=== PATIENT | female | born 1960 | race Caucasian/White ===

== ENCOUNTER 2018-02-07 18:35 | Emergency (ER) | payer SELFPAY ==
--- NOTE | 2018-02-07 18:57 | RADIOLOGY REPORT (SQ) ---
EXAM DESCRIPTION: ANKLE LEFT AP/LATERAL COMPLETED DATE/TIME: 02/07/2018 6:48 pm REASON FOR STUDY: bed 2 +deformity COMPARISON: None. NUMBER OF VIEWS: Three views. TECHNIQUE: AP, lateral, and oblique radiographic images acquired of the left ankle. LIMITATIONS: None. FINDINGS: MINERALIZATION: Normal. BONES: Oblique fracture of the distal fibula. Dislocation of the tibiotalar joint. Prominent calcan eal spur. JOINTS: No effusions. SOFT TISSUES: No soft tissue swelling. No foreign body. OTHER: No other significant finding. IMPRESSION: Fibular fracture with dislocation of the tibiotalar joint. Calcaneal spur. TECHNICAL DOCUMENTATION: JOB ID: [id number] [employer]- All Rights Reserved Reading location - IP/workstation name: [email or web address]
[2018-02-07] MEDS ORDERED: HYDROMORPHONE HCL INJ/PF 2 MG/ML AMPULE IV ONE (18:58)
[2018-02-07] MEDS ORDERED: NORMAL SALINE 1000 ML 1,000 ML IV ONE (19:33)
[2018-02-07] MEDS ORDERED: LIDOCAINE 1%/EPINEPHRINE INJ 20 ML VIAL INJ ONE (19:35)
--- NOTE | 2018-02-07 20:34 | ER Document Report ---
ED Fall - General Chief Complaint: Fall Injury Stated Complaint: FALL Time Seen by Provider: 02/07/18 18:58 Mode of Arrival: Medic - HPI Patient complains to provider of: Leg pain Occurred: Other - This 57-year-old female presents for evaluation of pain in the left lower extremity after having fallen on her front steps with pain immediately thereafter. Denies any injury elsewhere pain shortness of breath fevers chills or other recent symptoms, she is otherwise generally healthy is treated for hypertension. Past Medical History - General Information source: Patient - Social History Smoking Status: Never Smoker Family History: None Patient has suicidal ideation: No Patient has homicidal ideation: No - Past Medical History Cardiac Medical History: Reports: Hx Hypertension Renal/ Medical History: Denies: Hx Peritoneal Dialysis Past Surgical History: Reports: Hx Abdominal Surgery - Hernia repair, Hx Section, Hx Gynecologic Surgery - Ablation Review of Systems - Review of Systems -: Yes All other systems reviewed and negative Physical Exam - Vital signs Vitals: Temp Pulse Resp BP Pulse Ox 98.5 F 87 16 166/90 H 96 02/07/18 18:42 02/07/18 18:42 02/07/18 18:42 02/07/18 18:42 02/07/18 18:42 - General General appearance: Appears well In distress: None - HEENT Head: Normocephalic Eyes: Normal Conjunctiva: Normal Cornea: Normal Extraocular movements intact: Yes - Respiratory Respiratory status: No respiratory distress Chest status: Nontender Breath sounds: Normal Chest palpation: Normal - Cardiovascular Rhythm: Regular Heart sounds: Normal auscultation Murmur: No - Abdominal Inspection: Normal Distension: No distension Tenderness: Nontender - Back Back: Normal - Extremities General upper extremity: Normal inspection, Nontender, Normal ROM, Normal strength General lower extremity: Other - The left lower extremity demonstrates an obvious malalignment, there is normal range of motion in the hips, knees, the left ankle is anteriorly displaced, there is intact sensation in the distal aspect of the webspace between the first and second digit, there is a strong DP pulse and brisk capillary refill in all 5 toes Intact PT pulse - Neurological Neuro grossly intact: Yes Cognition: Normal Orientation: AAOx4 Tima Coma Scale Eye Opening: Spontaneous Tima Coma Scale Verbal: Oriented [place] Coma Scale Motor: Obeys Commands [place] Coma Scale Total: 15 Speech: Normal Cranial nerves: Normal Cerebellar coordination: Normal - Psychological Associated symptoms: Normal affect Course - Re-evaluation Re-evalutation: 02/08/18 03:34 This patient presented for an obvious abnormality in the left lower extremity after slipping on her front step, immediately evaluated the patient at the bedside, she has intact sensation and pulses in the left lower extremity at this time. X-ray was con contacted for emergent x-ray of the ankle which demonstrated what appeared to be a dislocation as well as a fibular fracture. She otherwise has no other symptoms, she has no proximal fibular tenderness, no pelvic instability. Obtained consents for both conscious sedation as well as reduction. Contacted Dr. Rueda he notes that he is amenable to seeing this patient in clinic in follow-up as soon as tomorrow without any emergent indication for sooner evaluation at this time. Following sedation as well as reduction postreduction x-rays obtained, ankle appears to be improved from previous. Patient is now ambulatory with the assistance of crutches with a splint in place she will be referred to Dr. Aguilar, she is in agreement with this course of action at this time, she has no evidence at this time of a vascular injury, she was given instructions related to any potential developing compartment syndrome though at the time her splint was applied the compartments remain soft. She was discharged with return precautions in the care of her family. - Vital Signs Vital signs: Temp Pulse Resp BP Pulse Ox 98.5 F 97 14 168/87 H 97 02/07/18 18:42 02/07/18 21:15 02/07/18 21:21 02/07/18 21:51 02/07/18 21:43 Procedures - Conscious Sedation Conscious sedation Time started: 21:00 Time completed: 21:11 Consent obtained: Yes Indication: fracture dislocation Prior complications: Procedural sedation Normal healthy pt.: P1. - ASA Classification Airway Evaluation: Normal anatomy Mallampati Classification: Class 2 Used during procedure: Suction available, IV access obtained, Pulse ox on pt., shelter monitor on pt. Medications administered: Diprivan Reversal agents: None I personally performed/intraservice time: Sedation, Procedure, 30 min or less Complications: No - Joint Reduction/Fracture Care Left Lower Ankle Time completed: 21:11 Consent obtained: Yes Conscious sedation: Yes Pre-procedure NV exam: Yes Fracture: Closed Post-procedure NV exam: Yes Post-reduction x-ray: Joint reduced Reduction attempts: 1 Complications: No Discharge - Discharge Clinical Impression: Ankle dislocation Qualifiers: Encounter type: initial encounter Laterality: left Qualified Code(s): S93.05XA - Dislocation of left ankle joint, initial encounter Ankle fracture Qualifiers: Encounter type: initial encounter Fracture type: closed Laterality: left Qualified Code(s): S82.892A - Other fracture of left lower leg, initial encounter for closed fracture Condition: Good Disposition: HOME, SELF-CARE Instructions: Dislocation ([facility]), Fracture of Distal Fibula ([facility]) Additional Instructions: Your seen today for your fractured and dislocated ankle. He had an evaluation including a physical exam as well as x-rays and a replacement of your ankle into the joint. Follow-up with Dr. Aguilar in the next 2 days in the office for further management. If you have loss of feeling in the leg, increasing pain that will not improve with loosening up the splint or inability to feel your toes he should return to the emergency room as it may be a more serious condition. Keep your splint dry until you are seen by the orthopedist, use the crutches as needed, use the pain medication only as necessary. Use Motrin and Tylenol in addition to this medication to help with your pain. Prescriptions: Hydrocodone/Acetaminophen [[place] 5-325 mg Tablet] 2 tab PO Q6H PRN #20 tab PRN Reason: Referrals: ROSY MERA MD [ACTIVE STAFF] - 02/08/18
[2018-02-07] MEDS: PROPOFOL INJ 200 MG/20 ML VIAL IV PRN ×5 (20:57→21:02)
[2018-02-07] MEDS ORDERED: HYDROCODONE/ACETAMINOPHEN 5-325 MG (6 TAB/ER DISP) PO PRN (21:23)
--- NOTE | 2018-02-07 21:47 | RADIOLOGY REPORT (SQ) ---
EXAM DESCRIPTION: XR ANKLE 2 VIEWS COMPLETED DATE/TME: 02/07/2018 21:04 CLINICAL HISTORY: 57 years, Female, post reduction COMPARISON: Prereduction x-ray of the left ankle done on the same day NUMBER OF VIEWS: Two TECHNIQUE: Two views of the left ankle were done LIMITATIONS: None. FINDINGS: There is interval placement of patient's left ankle and leg in a stabilization splint. There is interval near complete resolution of the angulation at the distal left fibular fracture site. There is also interval reduction of the medial malleolar fracture fragment with near anatomic alignment of this fracture fragment. The remainder of the left distal tibia. There continues to be 4 mm diastasis at the distal left fibular fracture site. A minimally displaced small fracture fragment involving the posterior malleolus of the left ankle is noted. There is no diastases of the left ankle IMPRESSION: Status post reduction of the distal left tibial and fibular fractures, as described above 2010 [employer]- All Rights Reserved
[2018-02-07 21:54] VITALS: BP 168/87
== END 2018-02-07 22:20 | disposition home or self-care (01) ==
LOC: ER 18:35
PROC: 0SSGXZZ Reposition Left Ankle Joint, External Approach (ICD-10-PCS; principal; 2018-02-07)
DX: S93.05XA Dislocation of left ankle joint, initial encounter (principal); S82.892A Other fracture of left lower leg, initial encounter for closed fracture; W01.0XXA Fall on same level from slipping, tripping and stumbling without subsequent striking against object, initial encounter; I10 Essential (primary) hypertension
CPT/HCPCS: 99284; 96361; 96374; 73600; 27840; J3490; J1170; J2704

== ENCOUNTER → 2018-02-08 | Outpatient (CLI) | payer BC ==
[2018-02-08 12:35] LABS: ABSOLUTE BASOPHILS # (AUTO) 0.1 10^3/uL (0.0-0.2); ABSOLUTE EOSINOPHILS # (AUTO) 0.1 10^3/uL (0.0-0.6); ABSOLUTE LYMPHOCYTES (AUTO) 2.7 10^3/uL (0.5-4.7); ABSOLUTE MONOCYTES (AUTO) 0.7 10^3/uL (0.1-1.4); ABSOLUTE NEUT (AUTO) 4.9 10^3/uL (1.7-8.2); BASOPHILS % (AUTO) 0.7 % (0-2); EOSINOPHILS % (AUTO) 1.1 % (0-6); HEMATOCRIT 40.5 % (36.0-47.0); HEMOGLOBIN 13.8 g/dL (12.0-15.5); LYMPHOCYTES % (AUTO) 31.9 % (13-45); MEAN CORPUSCULAR HEMOGLOBIN 29.7 pg (27.0-33.4); MEAN CORPUSCULAR HGB CONC 34.1 g/dL (32.0-36.0); MEAN CORPUSCULAR VOLUME 87 fl (80-97); MONOCYTES % (AUTO) 7.9 % (3-13); PLATELET COUNT 310 10^3/uL (150-450); RED BLOOD COUNT 4.64 10^6/uL (3.72-5.28); RED CELL DISTRIBUTION WIDTH 13.6 % (11.5-14.0); SEGMENTED NEUTROPHILS % (AUTO) 58.4 % (42-78); TOTAL CELLS COUNTED % (AUTO) 100 %; WHITE BLOOD COUNT 8.4 10^3/uL (4.0-10.5)
[2018-02-08 12:54] LABS: ANION GAP 8 (5-19); BLOOD UREA NITROGEN 13 mg/dL (7-20); CALCIUM 9.7 mg/dL (8.4-10.2); CARBON DIOXIDE 32 mmol/L (22-30); CHLORIDE 98 mmol/L (98-107); GLUCOSE 95 mg/dL (75-110); SODIUM 137.9 mmol/L (137-145)
--- NOTE | 2018-02-08 13:13 | RADIOLOGY REPORT (SQ) ---
EXAM DESCRIPTION: CHEST PA/LATERAL COMPLETED DATE/TIME: 02/08/2018 12:39 pm REASON FOR STUDY: PRE-OP COMPARISON: None. EXAM PARAMETERS: NUMBER OF VIEWS: two views TECHNIQUE: Digital Frontal and Lateral radiographic views of the chest acquired. RADIATION DOSE: NA LIMITATIONS: none FINDINGS: LUNGS AND PLEURA: No opacities, masses or pneumothorax. No pleural effusion. MEDIASTINUM AND HILAR STRUCTURES: No masses or contour abnormalities. HEART AND VASCULAR STRUCTURES: Heart normal size. No evidence for failure. BONES: No acute findings. HARDWARE: None in the chest. OTHER: No other significant finding. IMPRESSION: NO SIGNIFICANT RADIOGRAPHIC FINDING IN THE CHEST. TECHNICAL DOCUMENTATION: JOB ID: [id number] [employer]- All Rights Reserved Reading location - IP/workstation name: [email or web address]
[2018-02-08 13:31] LABS: APPEARANCE,URINE SLIGHTLY-CLOUDY; BILIRUBIN,URINE NEGATIVE (NEGATIVE); COLOR,URINE YELLOW; GLUCOSE, URINE NEGATIVE (NEGATIVE); KETONES,URINE NEGATIVE (NEGATIVE); LEUKOCYTE ESTERASE,URINE NEGATIVE (NEGATIVE); NITRITE,URINE NEGATIVE (NEGATIVE); PROTEIN,URINE NEGATIVE (NEGATIVE); URINE SPECIFIC GRAVITY 1.015; UROBILINOGEN,URINE NEGATIVE mg/dL (<2.0)
--- NOTE | 2018-02-08 14:37 | EKG REPORT ---
SEVERITY:- NORMAL ECG - SINUS RHYTHM : Confirmed by: Diane Alvarado MD 08-Feb-2018 14:36:25
== END ==
LOC: OD 11:46
PROVIDERS: ATTEND Orthopaedic Surgery
DX: Z01.818 Encounter for other preprocedural examination (principal)
CPT/HCPCS: 36415; 71046; 80048; 81001; 85025; 93005; 93010

== ENCOUNTER 2018-02-12 10:09 | Day surgery (SDC) | payer BC ==
[~2018-02-12 10:09] MED LIST: CEFAZOLIN 2 GM/D5W RTU 2 GM/50 ML RTUPB IV PRN
[2018-02-12] MEDS ORDERED: CEFAZOLIN 2 GM/D5W RTU 2 GM/50 ML RTUPB IV ONE (10:10)
[2018-02-12] MEDS ORDERED: BUPIVACAINE HCL/DEX-WATER/PF 15 MG/2 ML AMPULE ONE (10:17)
[2018-02-12] MEDS ORDERED: FENTANYL CITRATE INJ/PF 100 MCG/2 ML AMPUL ONE (10:18)
[2018-02-12] MEDS ORDERED: PROPOFOL INJ 200 MG/20 ML VIAL IV ONE (10:19)
[2018-02-12] MEDS ORDERED: MIDAZOLAM 2 MG/2 ML INJ ONE (10:19)
[2018-02-12] MEDS ORDERED: ONDANSETRON HCL INJ/PF 4 MG/2 ML SDV ONE (11:01)
[2018-02-12] MEDS ORDERED: MORPHINE SULFATE 10 MG/ML INJ IV PRN (11:33)
[2018-02-12] MEDS ORDERED: MEPERIDINE HCL/PF INJ 25 MG/1 ML DISP.SYRIN IV PRN (11:33)
[2018-02-12] MEDS ORDERED: FENTANYL CITRATE INJ/PF 100 MCG/2 ML AMPUL IV PRN ×3 (11:33)
[2018-02-12] MEDS ORDERED: OXYCODONE-ACETAMINOPHEN 5-325 MG TABLET PO PRN ×3 (11:33→15:08)
[2018-02-12] MEDS ORDERED: PROMETHAZINE HCL INJ 25 MG/1 ML VIAL IV PRN ×2 (11:33)
[2018-02-12] MEDS ORDERED: DIPHENHYDRAMINE HCL 50 MG/ML VIAL IV PRN (11:33)
--- NOTE | 2018-02-12 12:06 | Operative Report ---
Operative Report DATE OF SURGERY: 02/12/18 PREOPERATIVE DIAGNOSIS: Left bimalleolar ankle fracture OPERATION: Open reduction internal fixation left bimalleolar ankle fracture SURGEON: MYRTLE RUCKER ANESTHESIA: Spinal ESTIMATED BLOOD LOSS: 50 PROCEDURE: With the patient supine and operative table left lower extremities prepped and draped in sterile fashion. Limb was elevated for exsanguination tourniquet inflated to 280 torr. Longitudinal incisions made over the distal lateral fibula and sharp dissection is carried the incision through the periosteum. The periosteum was elevated and the fracture visualized. Its reduced anatomically and held in place with a temporary pin. Subsequently [place] titanium 8 hole 2.7 mm plate is applied to the lateral surface of the fibula and secured with 4 screws proximally and 4 screws distally. Fluoroscopy was used to assess fracture reduction hardware placement which were felt to be adequate. Now attention was turned to the medial malleolus. Longitudinal incisions made over the medial malleolus and in a similar fashion the periosteum was elevated and the fracture identified. Its reduced anatomically and held in place with a single pin 440 cannulated screw. Subsequently 50 mm [place] titanium 4.0 millimeter screw was advanced over the pin for an anatomic reduction medial malleolus. At this point the tourniquet is deflated. Hemostasis obtained with electrocautery. The wounds irrigated with bulb lavage. The closure is interrupted Vicryl followed by miguel. A sterile compressive dressing posterior plaster splint were applied the patient's return to PACU in satisfactory condition.
--- NOTE | 2018-02-12 12:10 | Discharge Summary ---
Discharge Summary (SDC) - Discharge Final Diagnosis: Left bimalleolar ankle fracture Date of Surgery: 02/12/18 Discharge Date: 02/12/18 Condition: Good Treatment or Instructions: Touchdown weightbearing left lower extremity with crutches if needed Prescriptions: Oxycodone HCl [Oxy-Ir 5 mg Tablet] 5 mg PO Q6 PRN #60 tab PRN Reason: Referrals: JAXON STONE MD [Primary Care Provider] - Discharge Diet: As Tolerated, Regular Respiratory Treatments at Home: Deep Breathing/Coughing Discharge Activity: Balance Activity w/Rest, No Driving, No tub bath Home Care Assistance: None Needed Adaptive Devices on Discharge: Axillary Crutches Report the Following to Your Physician Immediately: Shortness of Breath, Fever over 101 Degrees, Drainage-Foul Smelling
[2018-02-12] MEDS ORDERED: OXYCODONE-ACETAMINOPHEN 5-325 MG TABLET ONE (15:06)
--- NOTE | 2018-02-12 15:35 | RADIOLOGY REPORT (SQ) ---
EXAM DESCRIPTION: NO CHG FLUORO; ANKLE LEFT AP/LATERAL COMPLETED DATE/TIME: 02/12/2018 3:11 pm REASON FOR STUDY: ORIF LEFT ANKLE ASST WITH FLUORO IN OR S82.842A DISPLACED BIMALLEOLAR FRACTURE OF LEFT LOWER LEG, I COMPARISON: None. FLUOROSCOPY TIME: 0.2 minutes 7 images saved to PACS. TECHNIQUE: Intra-operative images acquired during surgical procedure to evaluate progress. NUMBER OF IMAGES: 7 LIMITATIONS: None. FINDINGS: Selected images from plate and screw fixation of distal fibular fracture. Cancellous scre w fixation of medial malleolar fracture. Alignment is anatomic. IMPRESSION: IMAGE(S) OBTAINED DURING PROCEDURE. COMMENT: Quality ID [id number]: Final reports for procedures using fluoroscopy that document radiation exp osure indices, or exposure time and number of fluorographic images (if radiation exposure indices are not available) Please consult full operative report of the attending physician for description of the procedure. TECHNICAL DOCUMENTATION: JOB ID: [id number] [employer]- All Rights Reserved Reading location - IP/workstation name: [email or web address]
--- NOTE | 2018-02-12 15:35 | RADIOLOGY REPORT (SQ) ---
EXAM DESCRIPTION: NO CHG FLUORO; ANKLE LEFT AP/LATERAL COMPLETED DATE/TIME: 02/12/2018 3:11 pm REASON FOR STUDY: ORIF LEFT ANKLE ASST WITH FLUORO IN OR S82.842A DISPLACED BIMALLEOLAR FRACTURE OF LEFT LOWER LEG, I COMPARISON: None. FLUOROSCOPY TIME: 0.2 minutes 7 images saved to PACS. TECHNIQUE: Intra-operative images acquired during surgical procedure to evaluate progress. NUMBER OF IMAGES: 7 LIMITATIONS: None. FINDINGS: Selected images from plate and screw fixation of distal fibular fracture. Cancellous scre w fixation of medial malleolar fracture. Alignment is anatomic. IMPRESSION: IMAGE(S) OBTAINED DURING PROCEDURE. COMMENT: Quality ID [id number]: Final reports for procedures using fluoroscopy that document radiation exp osure indices, or exposure time and number of fluorographic images (if radiation exposure indices are not available) Please consult full operative report of the attending physician for description of the procedure. TECHNICAL DOCUMENTATION: JOB ID: [id number] [employer]- All Rights Reserved Reading location - IP/workstation name: [email or web address]
[2018-02-12 17:09] VITALS: BP 142/81
== END 2018-02-12 17:00 | disposition home or self-care (01) ==
LOC: OROUT 10:09
PROVIDERS: ATTEND Orthopaedic Surgery
DX: S82.842A Displaced bimalleolar fracture of left lower leg, initial encounter for closed fracture (principal); X58.XXXA Exposure to other specified factors, initial encounter; Z79.899 Other long term (current) drug therapy; I10 Essential (primary) hypertension; M25.572 Pain in left ankle and joints of left foot; E66.9 Obesity, unspecified; Z68.31 Body mass index [BMI] 31.0-31.9, adult
CPT/HCPCS: 27814; 73600; C1713 ×5; C1769; J2250; J3490; J3010; J2405; J2704; J0690; 01480